=== PATIENT | female | born 1950 | race Caucasian/White ===

== ENCOUNTER 2018-05-20 13:48 | Day surgery (SDC) | payer MEDICARE, MEDICAID ==
[~2018-05-20] VITALS: Ht 157.5 cm; Wt 65.9 kg
[~2018-05-20 13:48] MED LIST: CALC-729 PO; DOCU100C40 PO; ENOX100S3 SQ; IRON150C13 PO; LORA0.5T PO; OMEP-84 PO; OXYC15TA82 PO; PER10325T PO; PER5325T PO; ROC2I IV; ZOLP5TAB8 PO
[2018-05-20] MEDS ORDERED: MIDAZolam 5mg/5ml vial ONE (13:52)
[2018-05-20] MEDS ORDERED: LIDOcaine Viscous 15ml cup ONE (13:52)
[2018-05-20] MEDS ORDERED: fentaNYL/PF 50MCG/1 ML 2ML syringe ONE (13:52)
[2018-05-20 14:07] VITALS: BP 131/80
[2018-05-20] MEDS ORDERED: CYAN-19 PO (14:34)
[2018-05-20] MEDS ORDERED: FURO-150 PO (14:35)
[2018-05-20] MEDS ORDERED: HYDR-565 PO (14:41)
[2018-05-20] MEDS ORDERED: SPIR50TA5 PO (14:41)
[2018-05-20 16:02] VITALS: BP 112/73
[2018-05-20 16:11] VITALS: BP 128/68
[2018-05-20 16:21] VITALS: BP 124/53
[2018-05-20 16:31] VITALS: BP 134/68
== END 2018-05-20 16:55 | disposition home or self-care (01) ==
LOC: GI LAB 13:48
PROVIDERS: ATTEND Internal Medicine Gastroenterology
DX: I85.00 Esophageal varices without bleeding (principal); K44.9 Diaphragmatic hernia without obstruction or gangrene; K21.0 Gastro-esophageal reflux disease with esophagitis; K92.1 Melena; M19.90 Unspecified osteoarthritis, unspecified site; F31.9 Bipolar disorder, unspecified; Z90.710 Acquired absence of both cervix and uterus; Z86.14 Personal history of Methicillin resistant Staphylococcus aureus infection; Z86.19 Personal history of other infectious and parasitic diseases; Z90.49 Acquired absence of other specified parts of digestive tract; Z87.442 Personal history of urinary calculi; Z79.891 Long term (current) use of opiate analgesic; Z96.651 Presence of right artificial knee joint; Z98.890 Other specified postprocedural states; Z79.899 Other long term (current) drug therapy
CPT/HCPCS: 43235; J2250; J3010; J7030; A4620; G0500